=== PATIENT | female | born 1980 | race African-American/Black ===

== ENCOUNTER 2019-10-08 08:09 | Day surgery (SDC) | payer OTHER ==
[2019-10-02 09:41] VITALS: BMI 33.9
[2019-10-04 16:39] LABS: Hemoglobin 13.3 g/dL (12.0-16.0); Mean Corpuscular HGB CONC 34.1 g/dL (32.0-36.0); Mean Corpuscular Hemoglobin 29.8 pg (27.0-31.0); Mean Corpuscular Volume 87.5 fL (78.0-98.0); Mean Platelet Volume 7.9 fL (7.4-10.4); Platelet Count 368 thou/uL (130-400); RBC Distribution Width 12.5 % (11.5-14.5); Red Blood Cell (RBC) Count 4.45 mill/uL (4.20-5.40); White Blood Cell (WBC) Count 7.3 thou/uL (4.8-10.8)
[2019-10-04 16:47] LABS: BHCG - Serum Negative (NEGATIVE); Pregs Control Background? CLEAR/WHITE (CLR/WHITE); Pregs Control Bar Appear? YES (CONTROL BAR)
[2019-10-05 12:53] LABS: SARS-CoV-2 MS2 Positive; SARS-CoV-2 N Gene Negative; SARS-CoV-2 S Gene Negative; SARS-CoV-2 orf1ab Negative
--- NOTE | 2019-10-08 08:24 | HP ---
HISTORY OF PRESENT ILLNESS: Ms. Terry is a 38-year-old female, who is a G0, who has had a history of prior uterine myomectomy in March of 2017. She is also experiencing increased left-sided pelvic pain recently, which noted for her to have a complex left adnexal mass. This was approximately 3 months prior. The complexity in the left ovary has resolved, but she persists with what appears to be a left hydrosalpinx and dilated tubular structure in the left adnexal region. She has primary infertility also for which she had seen Dr. Orozco, who is a electron beam welder. At the time of her myomectomy procedure in March 2017, she was noted to have dense pelvic adhesion, which also necessitated a right salpingectomy, removing a right abnormal hydrosalpinx. She is again desiring assisted reproductive technology and will now be pursuing IVF. The hydrosalpinx on the left side has persisted, causing her significant pain and also would be inhibitory to an IVF ovarian oocyte aspiration. The patient is desiring surgical removal of the abnormal fallopian tube and lysis of adhesion for her chronic pain. PAST MEDICAL HISTORY: Otherwise negative. PAST SURGICAL HISTORY: As noted being the uterine myomectomy with extensive lysis of pelvic adhesion in March of 2017. FAMILY HISTORY: Only significant for hypertension in her parents. CURRENT MEDICATIONS: 1. Lysteda 250 mg tablet two p.o. q.8 hours for up to five days for heavy menstrual bleeding due to her persistent recurrent uterine fibroids. 2. She is using non-steroidals for intermittent pelvic pain and also tramadol as needed for pain. SOCIAL HISTORY: She is a nonsmoker. She is . She works as a nurse at [employer]. No illicit drug use reported. Her last Pap smear was normal in August of 2018 with negative HPV testing. PHYSICAL EXAMINATION: VITAL SIGNS: Her height is 5 feet 6 inches, weight 214 with BMI of 34.5, blood pressure is 122/76, pulse 86, respirations 18, and O2 saturation 99% on room air. HEENT: Within normal limits. CHEST: Clear to auscultation. HEART: Regular rate and rhythm. S1 and S2 heart sounds. No murmurs, rubs, or gallops. ABDOMEN: Soft, nontender, and nondistended. No palpable masses appreciated. PELVIC: Vulva and vagina had no lesions. Cervix had no lesions. Uterus was 10-week size consistent with uterine myoma and her left adnexal structures had palpable fullness and mild tenderness on palpation. The right adnexa was nontender. DIAGNOSTIC DATA: Recent imaging study, most recently being on 08/31/2019, showed her uterus to measure 10.5 x 5.6 cm with an endometrial thickness of 9.61. Right ovary was normal in appearance, measuring 3.36 x 1.69 cm. Left, she had anterior fibroid measuring 4.8 x 4.5 cm and a posterior fibroid measuring 3.9 x 3.4 cm. The left cystic adnexal structure is either ovarian cyst versus hydrosalpinx measured 6.6 x 3.5 x 5.4 cm and has remained stable. ASSESSMENT: This is a 38-year-old female, G0 with uterine myomectomy history with recurrent uterine fibroids and also persistent left adnexal cyst, most likely hydrosalpinx. She also has primary infertility, seeking assisted reproductive technology with the IVF. PLAN: Plan is to proceed with robotic laparoscopic removal of the left adnexal cystic structure. Also lysis of adhesions as indicated. Risks and benefits of procedure have been discussed in detail and she is set for surgery on 10/08/2019. Job ID: [id number]
[2019-10-08] MEDS ORDERED: Gabapentin 300 MG CAP ONE (08:44)
[2019-10-08] MEDS ORDERED: CeleCOXIB 100 MG CAP ONE (08:44)
[2019-10-08] MEDS ORDERED: Famotidine/PF 20 mg/2ml Vial ONE ×2 (08:44→09:26)
[2019-10-08] MEDS ORDERED: Lidocaine 1% w/Epinephrine 1:100K 20 ML VIAL ONE (09:18)
[2019-10-08] MEDS ORDERED: Bupivacaine PF 0.5% 30 ML VIAL ONE (09:18)
[2019-10-08] MEDS ORDERED: Fentanyl 100 MCG/2 ML VIAL ONE ×3 (09:20→12:33)
[2019-10-08] MEDS ORDERED: Lidocaine 2% Jelly 5 ML TUBE ONE (09:21)
[2019-10-08] MEDS ORDERED: Rocuronium Bromide 10 MG/ML (10ML VIAL) ONE (11:23)
[2019-10-08] MEDS ORDERED: Ketorolac Tromethamine 30 MG/ML VIAL ONE (11:23)
[2019-10-08] MEDS ORDERED: PROPOFOL 200 MG/20 ML VIAL ONE (11:23)
[2019-10-08] MEDS ORDERED: Lidocaine 1% PF 5 ML VIAL ONE (11:23)
[2019-10-08] MEDS ORDERED: Glycopyrrolate 0.2 MG/ML 5 ML SYRINGE ONE (11:23)
[2019-10-08] MEDS ORDERED: PHENYLEPHRINE-NS 100 MCG/ML 10 ML SYRINGE ONE (11:23)
[2019-10-08] MEDS ORDERED: Dexamethasone 20 MG/5 ML VIAL ONE (11:23)
[2019-10-08] MEDS ORDERED: Ondansetron PF 4 MG/2 ML Vial ONE (11:23)
[2019-10-08] MEDS ORDERED: EPHEDRINE 25 MG/5 ML SYRINGE ONE (11:23)
[2019-10-08] MEDS ORDERED: HYDROcodone/Acetaminophen 5/325 mg Tablet ONE (13:29)
--- NOTE | 2019-10-09 09:36 | OP ---
DATE OF PROCEDURE: 10/08/2019 PREOPERATIVE DIAGNOSIS: 1. A 38-year-old female, G0 with history of uterine fibroids. 2. Prior myomectomy. 3. Left adnexal cyst approximately 8 x 5 cm, persistent with pelvic pain. POSTOPERATIVE DIAGNOSES: 1. Extensive pelvic adhesive disease, what appears to be a complex left ovarian hydrosalpinx. 2. Right-sided uterosacral pelvic implant of endometriosis, status post cauterization. 3. Pelvic adhesive disease. PROCEDURES PERFORMED: Robotic diagnostic laparoscopy with lysis of adhesions, right salpingectomy for abnormal right fallopian tube, and excision and drainage of left adnexal cyst with cyst biopsy. SPORT INTERNSHIP SURGEON: Mable Olivas PA-C ANESTHESIA: General endotracheal anesthetic agent. ANTIBIOTICS: Ancef 2 g energy conservation technician to OR. FINDINGS: 1. Uterus was enlarged with known uterine fibroids. It was completely draped with adhesed small bowel and colon with both dense and filmy adhesions. This is status post lysis of adhesions. 2. Right ovary appeared normal with filmy adhesions and dense adhesions once small bowel had been dissected free of the adnexal structures. The right fallopian tube was adhesed and had a dilatation to it in clubbing consistent with chronic inflammatory salpingitis. There was oozing and bleeding due to the adhesiolysis, status post excision. 3. Appendix appeared normal. Liver edge and gallbladder appeared normal. 4. The cystic mass on the left adnexa with no identifiable normal fallopian tube was visualized after it was uncovered from the bowel adhesions. It was adhesed from the lower left pelvic sidewall down to the posterior cul-de-sac. It was drained and excised with no identifiable ovarian tissue cyst wall, status post biopsy. PATHOLOGY: Right fallopian tube and biopsy of this ovarian adnexal cyst wall. DISPOSITION: To recovery room and then plan for discharge home later today. DESCRIPTION OF PROCEDURE: The patient previously received informed consent in regard to surgery. She was taken back to the operating room, where she received a general endotracheal anesthetic agent without complications. She was placed in the dorsal lithotomy position with use of Jesus stirrups. At this time, a Sierra catheter was placed. A side-arm speculum placed in the vagina. The uterus sounded to approximately 11 cm. Initially, an 8-cm JOHNNA uterine manipulator was attempted to be placed, but it was difficult to pass the stem of the JOHNNA and therefore, a size 6 was then utilized. We were able to place this to help in mobility of the uterus, which was approximately 12-to 14-week size on exam. Attention was then turned to the abdomen, where prospective trocar sites were infiltrated with 0.5% Marcaine with epinephrine. I did a supraumbilical incision 12 mm. The Veress needle was then placed into the peritoneal cavity. The patient's pressure was noted to be less than 5 mmHg and the abdomen was insufflated to a pressure of 15 and approximately 5 L of carbon dioxide gas. Veress needle was then removed. The robotic 8-mm laparoscope was introduced through the trocar sleeve confirming proper entry. Additional bilateral quadrant 8-mm trocars were placed along with the right upper quadrant 5-mm trocar. With the findings previously mentioned, a bipolar fenestrated cautery along with monopolar scissors were introduced through two 8-mm operative sheaths after the robot had been docked. I proceeded to carry out this from the operative console while my assistants remained at the bedside. We were able to find filmy adhesion layers of the small intestines and that were basically draping over the uterus. We dissected the filmy adhesions down very meticulously with traction and countertraction by my assistant superintendent for curriculum with atraumatic grasper, continued layering out the small intestine that was adhesed over the uterus and down towards posterior aspect of the uterine wall. I was able to then, with carefully dissecting in this direction create some open window planes that allowed for us to free up the right side of the uterus potentially down to the posterior cul-de-sac. The right ovary was lifted from this area after small filmy adhesions had been released. The fallopian tube was abnormal appearing. It was adhesed and clubbed appearance and dilated. Some oozing and bleeding on the fallopian tube did occur, so therefore to obtain hemostasis and also due to the abnormality of the right tube, the mesosalpinx had been coagulated. Then, the tube was removed and pulled out and placed in the right lower quadrant by the appendix region. The mobility of the right ovary was then assured and it was hemostatic over the edge of the removal of the right tube. I felt like if the patient was to have IVF, ovarian retrieval would be able to access the right ovary for follicles through the posterior cul-de-sac since this appeared to be opened up adequately on this side. Further dissection of the adhesions on the posterior left side of the uterus were carried out carefully avoiding the small intestine and the rectum and sigmoid colon. After these were freed up, we came into essentially a dilated, kind of sausage shaped, cyst wall that ran from the lower left pelvis into the posterior cul-de-sac. It was dissected, it ruptured, and yellowish serous fluid returned. Inside the cavity of the cyst, there was excrescences, all appeared smooth surfaced. I then tried to dissect and more of a window and sent this off to final pathology. It was adhered significantly on the left pelvic sidewall overlying some of the rectum, but we did free up the posterior cul-de-sac somewhat at least from the midportion all the way over to the right side of the pelvis. I left the remainder of the cyst wall behind due to concern for possible injury to rectum and colon if we proceeded and essentially it had been decompressed and it was out of the posterior cul-de-sac enough that I felt would enable the lineman service or work dispatcher to access oocyte retrieval on the right adnexa and on the right ovary. Hemostasis was carried out with bipolar cautery as indicated. We suction irrigated all the areas and then I placed Floseal for added hemostasis over the left adnexal cyst bed and posterior uterus. Photo documentation of all this had been obtained prior to this. We then had noticed some small implant of endometriosis, appeared to be in the right uterosacral region and this had been cauterized with the monopolar scissors. It was approximately 5 mm, pinpoint powder burn lesion noted. After this had been completed, a 5-mm bag was placed through the right upper quadrant port and the fallopian tube was placed in there and this was removed through the right upper quadrant port site. Prior to this, we had undocked the robot and then all the remainder trocar sleeves were removed. We then closed the fascial defect of the umbilical region with a [id number] of 0 Vicryl. Remainder of sites were closed with 4-0 Monocryl subcuticular and Dermabond. JOHNNA uterine manipulator was removed and hemostasis of the vagina and cervix was confirmed. The patient was awakened from anesthesia and transferred to recovery room in stable condition. Job ID: [id number]
== END 2019-10-08 16:10 | disposition home or self-care (01) ==
LOC: SDC 08:09
PROVIDERS: ATTEND Obstetrics & Gynecology
PROC: 0UT54ZZ Resection of Right Fallopian Tube, Percutaneous Endoscopic Approach (ICD-10-PCS; principal; 2019-10-08)
DX: N83.202 Unspecified ovarian cyst, left side (principal); D25.9 Leiomyoma of uterus, unspecified; N83.8 Other noninflammatory disorders of ovary, fallopian tube and broad ligament; Z79.899 Other long term (current) drug therapy; Z88.8 Allergy status to other drugs, medicaments and biological substances
CPT/HCPCS: 36415; 51798; 84703; 85027; 86850; 86900; 86901; 87635; 88304; 88305; J0690; J1100; J1885; J2405; J2704; J3010; S0020; S0028; U0003

== ENCOUNTER 2020-06-18 06:52 | Outpatient (CLI) | payer OTHER | END 2020-06-18 06:53 | disposition home or self-care (01) | LOC: BICULT 06:52 | PROVIDERS: ATTEND Obstetrics & Gynecology Reproductive Endocrinology | DX: R19.00 Intra-abdominal and pelvic swelling, mass and lump, unspecified site (principal); D25.9 Leiomyoma of uterus, unspecified; N83.202 Unspecified ovarian cyst, left side | CPT/HCPCS: 76856; 93976 ==